=== PATIENT | female | born 1970 | race African-American/Black ===

== ENCOUNTER 2017-09-11 18:42 | Emergency (ER) | payer OTHER ==
[~2017-09-11] VITALS: Ht 162.6 cm; Wt 90.9 kg
[2017-09-11] MEDS ORDERED: KETOROLAC TROMETHAMINE 30 MG/ML VIAL IM ONE (20:00)
[2017-09-11 20:07] VITALS: BP 132/77
== END 2017-09-11 20:18 | disposition home or self-care (01) ==
LOC: EMS 18:43
DX: S29.012A Strain of muscle and tendon of back wall of thorax, initial encounter (principal); X58.XXXA Exposure to other specified factors, initial encounter; Y93.89 Activity, other specified; Y92.89 Other specified places as the place of occurrence of the external cause; Y99.8 Other external cause status
CPT/HCPCS: 96372; 99283; J1885

== ENCOUNTER 2018-01-07 09:41 | Emergency (ER) | payer OTHER ==
[~2018-01-07] VITALS: Ht 157.5 cm; Wt 92.7 kg
[2018-01-07 12:52] VITALS: BP 122/79
== END 2018-01-07 12:54 | disposition home or self-care (01) ==
LOC: EMS 09:42
DX: J02.9 Acute pharyngitis, unspecified (principal)
CPT/HCPCS: 87430; 99283

== ENCOUNTER 2020-05-12 07:48 | Emergency (ER) | payer OTHER ==
[~2020-05-12] VITALS: Ht 157.5 cm; Wt 84.1 kg
[2020-05-12 08:35] LABS: APPEARANCE,URINE CLOUDY (CLEAR); GLUCOSE, URINE (UA) NEGATIVE (NEGATIVE); KETONES,URINE 15 mg/dL (NEGATIVE); LEUKOCYTE ESTERASE ,URINE MODERATE (NEGATIVE); NITRATE,URINE POSITIVE (NEGATIVE); OCCULT BLOOD,URINE NEGATIVE (NEGATIVE); PROTEIN,URINE TRACE (NEGATIVE)
[2020-05-12 08:49] LABS: BACTERIA,URINE Moderate /HPF (None Seen); BILIRUBIN,URINE PRELIM. POSITIVE (NEGATIVE); RBC,URINE 0-2 /HPF (0-2); SQUAMOUS EPITHELIAL CELL,UR Moderate /LPF (None Seen)
[2020-05-12 08:57] VITALS: BP 124/68
== END 2020-05-12 09:09 | disposition home or self-care (01) ==
LOC: EMS 07:48
DX: N39.0 Urinary tract infection, site not specified (principal)
CPT/HCPCS: 87086

== ENCOUNTER 2020-11-04 18:52 | Emergency (ER) | payer OTHER ==
[~2020-11-04] VITALS: Ht 157.5 cm; Wt 72.7 kg
[2020-11-04] MEDS ORDERED: IBUPROFEN 800 MG TABLET PO ONE (23:00)
[2020-11-05 00:20] VITALS: BP 126/80
== END 2020-11-05 00:33 | disposition home or self-care (01) ==
LOC: EMS 18:53
DX: S83.92XA Sprain of unspecified site of left knee, initial encounter (principal); X50.0XXA Overexertion from strenuous movement or load, initial encounter; Y93.43 Activity, gymnastics; Y92.89 Other specified places as the place of occurrence of the external cause; Y99.8 Other external cause status
CPT/HCPCS: 93971; 99284; Z7502; Z7610